=== PATIENT | male | born 1990 | race Hispanic/Latino ===

== ENCOUNTER 2024-12-29 16:38 | Emergency (ER) | payer BC ==
[~2024-12-29] VITALS: Ht 167.6 cm; Wt 99.5 kg
[2024-12-29 18:57] VITALS: PULSE 82; RESP 16; TEMP 98.2; O2SAT 97
== END 2024-12-29 18:57 | disposition home or self-care (01) ==
LOC: FSED 16:53
DX: N50.812 Left testicular pain (principal); N43.3 Hydrocele, unspecified
CPT/HCPCS: 76870; 81003; 99283